=== PATIENT | male | born 1945 | race Caucasian/White ===

== ENCOUNTER 2018-02-04 11:46 | Inpatient (IN) | payer MEDICARE ==
[~2018-02-04] VITALS: Ht 188 cm; Wt 98.2 kg
[2018-02-04] MEDS ORDERED: aspirin 81mg tab.chew PO ONE (11:55)
[2018-02-04 12:15] LABS: BASOPHILS # (AUTO) 0.1 X10'3 (0-0.2); BASOPHILS % (AUTO) 0.9 % (0-1); EOSINOPHILS # (AUTO) 0.3 X10'3 (0-0.9); EOSINOPHILS % (AUTO) 4.4 % (0-6); HEMATOCRIT 45.1 % (42.0-52.0); HEMOGLOBIN 15.1 g/dl (14.0-17.9); LYMPHOCYTES # (AUTO) 1.6 X10'3 (1.1-4.8); LYMPHOCYTES % (AUTO) 26.1 % (21-51); MEAN CORPUSCULAR HEMOGLOBIN 30.2 PG (27.0-31.0); MEAN CORPUSCULAR HGB CONC 33.5 % (33.0-36.5); MEAN CORPUSCULAR VOLUME 90.1 FL (78-98); MEAN PLATELET VOLUME 9.3 FL (7.4-10.4); MONOCYTES # (AUTO) 0.4 X10'3 (0-0.9); NEUTROPHILS # (AUTO) 3.8 X10'3 (1.8-7.7); NEUTROPHILS % (AUTO) 61.6 % (42-75); PLATELET COUNT 194 X10'3 (140-440); RED BLOOD COUNT 5.01 X10'6 (4.70-6.10); RED CELL DISTRIBUTION WIDTH 13.6 % (11.5-14.5); WHITE BLOOD COUNT 6.2 X10'3 (4.5-11.0)
[2018-02-04 12:25] LABS: PARTIAL THROMBOPLASTIN TIME 27 SECONDS (22-32)
[2018-02-04 12:29] LABS: ALANINE AMINOTRANSFERASE 37 U/L (12-78); ALBUMIN 3.7 G/DL (3.4-5.0); ALBUMIN/GLOBULIN RATIO 1.1 (1.1-1.5); ALKALINE PHOSPHATASE 79 IU/L (46-116); ANION GAP 9 (8-16); ASPARTATE AMINO TRANSFERASE 31 U/L (10-37); BILIRUBIN,TOTAL 0.3 MG/DL (0.1-1.0); BLOOD UREA NITROGEN 26 MG/DL (7-18); BUN/CREATININE RATIO 22.6 (5.4-32.0); CALCIUM 8.8 MG/DL (8.5-10.1); CHLORIDE 108 MMOL/L (99-107); CREATININE 1.15 MG/DL (0.60-1.10); GLUCOSE 106 MG/DL (70-104); POTASSIUM 4.5 MMOL/L (3.5-5.1); SODIUM 143 MMOL/L (135-145); TOTAL CARBON DIOXIDE 25.9 MMOL/L (24-32); eGFR 62 ML/MIN
[2018-02-04] MEDS ORDERED: nitroGLYCERIN 0.4mg/hour patch TD ONE ×2 (13:10→13:15)
[2018-02-04] MEDS ORDERED: LOSA50TA3 PO (13:26)
[2018-02-04] MEDS ORDERED: ATOR20TA PO (13:26)
[2018-02-04] MEDS ORDERED: GABA-532 PO (13:28)
[2018-02-04] MEDS ORDERED: GLUC-212 PO (13:28)
[2018-02-04] MEDS ORDERED: DOXA4TAB2 PO (13:29)
[2018-02-04] MEDS ORDERED: PER10325T PO (13:29)
[2018-02-04] MEDS ORDERED: NITR0.4T48 SL (13:30)
[2018-02-04] MEDS ORDERED: magnesium 4gm in 100ml NS 100 ML IV PRN (14:45)
[2018-02-04] MEDS ORDERED: magnesium Cl slow-release 64mg tablet PO PRN (14:45)
[2018-02-04] MEDS ORDERED: potassium Cl 40MEQ/NS 500ml 500 ML IV PRN ×2 (14:45)
[2018-02-04] MEDS ORDERED: potassium Cl 20 mEq SR tablet PO PRN ×2 (14:45)
[2018-02-04] MEDS ORDERED: morphine 4 MG/ML inj SYRINge IV PRN ×2 (14:45)
[2018-02-04] MEDS ORDERED: acetaminophen 325mg tablet PO PRN (14:45)
[2018-02-04] MEDS ORDERED: magnesium 2GM in 50ml NS 50 ML IV PRN (14:45)
[2018-02-04] MEDS ORDERED: mag hydrox/Alum hydrox/simeth 30ml oral suspension PO PRN (14:45)
[2018-02-04] MEDS ORDERED: ondansetron/PF 4mg/2ml inj IV PRN (14:45)
[2018-02-04] MEDS ORDERED: nitroGLYCERIN 0.4mg SUBLingual tab SL PRN ×2 (14:50→14:55)
[2018-02-04] MEDS ORDERED: regadenoson 0.4mg/5ml syringe IV ONE ×2 (14:55→19:45)
[2018-02-04] MEDS ORDERED: metoprolol tartrate 1mg/ml inj IV PRN (14:55)
[2018-02-04] MEDS ORDERED: aminophylline 250mg/10ml inj. IV PRN (14:55)
[2018-02-04] MEDS: gabapentin 300mg capsule PO SCH ×2 (15:08→20:58)
[2018-02-04] MEDS: enoxaparin 40mg/0.4ml syringe SUBCUT SCH (15:09)
[2018-02-04] MEDS: metoprolol tartrate 25mg tablet PO SCH ×2 (15:18→19:34)
[2018-02-04] MEDS: pantoprazole 40 MG vial IV SCH (15:18)
[2018-02-04] MEDS: sodium chloride 0.45% 1,000 ML IV SCH (15:18)
[2018-02-04] MEDS: oxyCODONE/APAP 10/325mg tablet PO SCH ×2 (15:19→19:34)
[2018-02-04] MEDS: magnesium hydroxide 30ml (MOM) UD suspension PO PRN ×2 (15:24→19:36)
[2018-02-04 17:00] VITALS: BP 151/79
[2018-02-04 19:00] VITALS: BP 146/72
[2018-02-04] MEDS: docusate sod 100mg capsule PO SCH (19:35)
[2018-02-04] MEDS ORDERED: doxazosin mesylate 2mg tablet PO SCH (21:00)
[2018-02-04 23:00] VITALS: BP 125/68
[2018-02-05] VITALS (10 sets, daily range): BP systolic 132–176; BP diastolic 71–86
[2018-02-05] MEDS: oxyCODONE/APAP 10/325mg tablet PO SCH ×4 (03:44→13:20)
[2018-02-05] MEDS: sodium chloride 0.45% 1,000 ML IV SCH (04:50)
[2018-02-05 05:42] LABS: BASOPHILS % (AUTO) 0.6 % (0-1); EOSINOPHILS # (AUTO) 0.3 X10'3 (0-0.9); EOSINOPHILS % (AUTO) 4.7 % (0-6); HEMATOCRIT 37.4 % (42.0-52.0); HEMOGLOBIN 13.2 g/dl (14.0-17.9); LYMPHOCYTES % (AUTO) 29.3 % (21-51); MEAN CORPUSCULAR HEMOGLOBIN 31.3 PG (27.0-31.0); MEAN CORPUSCULAR HGB CONC 35.3 % (33.0-36.5); MEAN CORPUSCULAR VOLUME 88.8 FL (78-98); MONOCYTES # (AUTO) 0.5 X10'3 (0-0.9); MONOCYTES % (AUTO) 7.5 % (2-12); NEUTROPHILS # (AUTO) 3.9 X10'3 (1.8-7.7); NEUTROPHILS % (AUTO) 57.9 % (42-75); PLATELET COUNT 162 X10'3 (140-440); RED BLOOD COUNT 4.21 X10'6 (4.70-6.10); RED CELL DISTRIBUTION WIDTH 14.3 % (11.5-14.5); WHITE BLOOD COUNT 6.8 X10'3 (4.5-11.0)
[2018-02-05 06:18] LABS: ALANINE AMINOTRANSFERASE 29 U/L (12-78); ALBUMIN 3.1 G/DL (3.4-5.0); ALBUMIN/GLOBULIN RATIO 1.1 (1.1-1.5); ALKALINE PHOSPHATASE 63 IU/L (46-116); ANION GAP 10 (8-16); ASPARTATE AMINO TRANSFERASE 23 U/L (10-37); BILIRUBIN,TOTAL 0.4 MG/DL (0.1-1.0); BLOOD UREA NITROGEN 23 MG/DL (7-18); BUN/CREATININE RATIO 23.5 (5.4-32.0); CALCIUM 8.8 MG/DL (8.5-10.1); CHLORIDE 109 MMOL/L (99-107); CHOLESTEROL 148 MG/DL (0-200); CREATININE 0.98 MG/DL (0.60-1.10); GLUCOSE 89 MG/DL (70-104); HDL CHOLESTEROL 50 MG/DL (35-60); LDL CHOLESTEROL 83 MG/DL (50-100); POTASSIUM 4.1 MMOL/L (3.5-5.1); SODIUM 143 MMOL/L (135-145); TOTAL CARBON DIOXIDE 24.2 MMOL/L (24-32); TOTAL PROTEIN 5.8 G/DL (6.4-8.2); TRIGLYCERIDES 99 MG/DL (20-135); eGFR 75 ML/MIN
[2018-02-05] MEDS ORDERED: CHONDROIT PO SCH (08:00)
[2018-02-05] MEDS ORDERED: atorvastatin 20mg tablet PO SCH (08:00)
[2018-02-05] MEDS ORDERED: losartan 50mg tablet PO SCH (08:00)
[2018-02-05] MEDS ORDERED: MANGANESE PO SCH (08:00)
[2018-02-05] MEDS ORDERED: GLUCOSAM PO SCH (08:00)
[2018-02-05] MEDS ORDERED: K and/or MAG REPLACEMENT MC SCH (08:00)
[2018-02-05] MEDS ORDERED: aspirin 81mg tablet.DR PO SCH (08:00)
[2018-02-05] MEDS ORDERED: [UNRECOGNIZED DRUG - OTHER] PO SCH (08:00)
[2018-02-05] MEDS: enoxaparin 40mg/0.4ml syringe SUBCUT SCH (08:00)
[2018-02-05] MEDS: pantoprazole 40 MG vial IV SCH ×2 (08:43→10:45)
[2018-02-05] MEDS ORDERED: regadenoson 0.4mg/5ml syringe IV ONE ×3 (09:08→10:00)
[2018-02-05] MEDS ORDERED: aminophylline inj. 0 ML IV ONE (09:08)
[2018-02-05] MEDS: metoprolol tartrate 25mg tablet PO SCH (10:44)
[2018-02-05] MEDS: docusate sod 100mg capsule PO SCH (10:44)
[2018-02-05] MEDS: gabapentin 300mg capsule PO SCH ×2 (10:45→13:19)
[2018-02-05] MEDS: magnesium hydroxide 30ml (MOM) UD suspension PO PRN (10:50)
[2018-02-05] MEDS ORDERED: PANT40TA4 PO (13:14)
[2018-02-05] MEDS ORDERED: ASPI-1264 PO (13:14)
[2018-02-05] MEDS ORDERED: METO25TA6 PO (13:14)
[2018-02-06] MEDS ORDERED: pantoprazole 40mg Tablet.DR PO SCH (07:30)
== END 2018-02-05 15:45 | disposition home or self-care (01) | DRG 392 ==
LOC: ER 11:47 → PCU 3S 14:45 → CMPBEDREQ 19:50
PROVIDERS: ADMIT Internal Medicine; ATTEND Internal Medicine
PROC: 4A02XM4 Measurement of Cardiac Total Activity, External Approach (ICD-10-PCS; principal; 2018-02-05)
PROC: 3E073KZ Introduction of Other Diagnostic Substance into Coronary Artery, Percutaneous Approach (ICD-10-PCS; 2018-02-05)
DX: K21.9 Gastro-esophageal reflux disease without esophagitis (principal); G62.9 Polyneuropathy, unspecified; I48.0 Paroxysmal atrial fibrillation; I10 Essential (primary) hypertension; E78.00 Pure hypercholesterolemia, unspecified; G89.4 Chronic pain syndrome; K22.4 Dyskinesia of esophagus; K59.00 Constipation, unspecified; Z79.82 Long term (current) use of aspirin; Z79.899 Other long term (current) drug therapy; Z87.891 Personal history of nicotine dependence
CPT/HCPCS: 36415; 71045; 78452; 80053; 80061; 83735; 84484; 85025; 85610; 85730; 87070; 93005; 93017; 99285; A9500; C9113; J0280; J1650; J7030